=== PATIENT | male | born 1995 | race Two or more races ===

== ENCOUNTER 2024-10-16 22:02 | Emergency (ER) | payer SELFPAY ==
[2024-10-16 22:06] VITALS: BP 120/80; PULSE 85; PULSE 90; RESP 18; TEMP 36.8; O2SAT 95; O2SAT 96; BMI 25.7
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
== END 2024-10-16 22:16 ==
LOC: SERX 22:39
PROVIDERS: Emergency Provider Emergency Medicine
DX: Z02.89 Encounter for other administrative examinations (principal); Z04.1 Encounter for examination and observation following transport accident
CPT/HCPCS: 99283